=== PATIENT | female | born 1980 | race Caucasian/White ===

== ENCOUNTER 2021-02-20 09:38 | Outpatient (CLI) | payer OTHER | END 2021-02-20 09:39 | disposition home or self-care (01) | LOC: CSHMAMMO 09:38 | PROVIDERS: ATTEND Obstetrics & Gynecology | DX: N63.10 Unspecified lump in the right breast, unspecified quadrant (principal) | CPT/HCPCS: G0279 ==

== ENCOUNTER 2021-03-19 09:29 | Outpatient (CLI) | payer OTHER ==
[2021-03-20 02:28] LABS: SARS-CoV-2 PCR by NAA Not Detected (NotDetected)
== END 2021-03-19 09:30 | disposition home or self-care (01) ==
LOC: CSHLAB 09:29
PROVIDERS: ATTEND Surgery
DX: Z20.822 Contact with and (suspected) exposure to COVID-19 (principal); N63.10 Unspecified lump in the right breast, unspecified quadrant; Z80.3 Family history of malignant neoplasm of breast
CPT/HCPCS: 87635; U0003; U0005

== ENCOUNTER 2021-03-22 06:18 | Day surgery (SDC) | payer OTHER ==
[2021-03-21 09:24] VITALS: BMI 32.3
[2021-03-22] MEDS ORDERED: EPINEPHrine 1 MG/ML AMP ONE (07:01)
[2021-03-22] MEDS ORDERED: Bupivacaine PF 0.5% 30 ML VIAL ONE (07:01)
[2021-03-22] MEDS ORDERED: Lidocaine 1% MPF 2 ML VIAL ONE (07:43)
[2021-03-22] MEDS ORDERED: Fentanyl 100 MCG/2 ML VIAL ONE (09:03)
[2021-03-22] MEDS ORDERED: Dexamethasone 4 mg/ml Vial ONE (09:03)
[2021-03-22] MEDS ORDERED: Glycopyrrolate 0.2 MG/ML 5 ML SYRINGE ONE (09:03)
[2021-03-22] MEDS ORDERED: Ketorolac Tromethamine 30 MG/ML VIAL ONE (09:03)
[2021-03-22] MEDS ORDERED: Midazolam HCl 2 mg/2 ml Vial ONE ×2 (09:03→09:04)
[2021-03-22] MEDS ORDERED: Lidocaine 1% PF 5 ML VIAL ONE (09:03)
[2021-03-22] MEDS ORDERED: PROPOFOL 20 ML ONE (09:03)
[2021-03-22] MEDS ORDERED: Ondansetron PF 4 MG/2 ML Vial ONE (09:03)
[2021-03-22] MEDS ORDERED: Scopolamine 1.5 mg/72 hour Patch ONE (09:04)
[2021-03-22] MEDS ORDERED: Promethazine HCl 25 MG/ML VIAL ONE (10:22)
[2021-03-22] MEDS ORDERED: HYDROcodone/Acetaminophen 5/325 mg Tablet PO PRN (10:23)
== END 2021-03-22 11:50 | disposition home or self-care (01) ==
LOC: CSHSDC 06:18
PROVIDERS: ATTEND Surgery
DX: D24.1 Benign neoplasm of right breast (principal); Z79.899 Other long term (current) drug therapy
CPT/HCPCS: 87635; 88305; J0171; J0690; J1100; J1885; J2250; J2405; J2550; J2704; J3010; S0020; U0003; U0005